=== PATIENT | female | born 1955 | race Caucasian/White ===

== ENCOUNTER 2018-06-02 15:06 | Emergency (ER) | payer BC ==
[2018-06-02] MEDS ORDERED: MULTI-DAY VITAM1 TAB PO (19:38)
[2018-06-02] MEDS ORDERED: BAYER CHEWABLE81 MG PO (19:39)
[2018-06-02] MEDS ORDERED: FISH OIL 1,0001 CA1 PO (19:40)
[2018-06-02] MEDS ORDERED: ZYRTEC10 MG PO (19:40)
[2018-06-02] MEDS ORDERED: COLACE100 MG PO (19:40)
[2018-06-02] MEDS ORDERED: CITRACAL + D E1 EACH PO (19:41)
[2018-06-02] MEDS ORDERED: NIASPAN500 MG PO (19:42)
[2018-06-02] MEDS ORDERED: OMEPRAZOLE20 M1 PO (19:42)
[2018-06-02] MEDS ORDERED: ESTRACE2 MG PO (19:43)
[2018-06-02] MEDS ORDERED: SYNTHROID50 MCG PO (19:45)
[2018-06-02] MEDS ORDERED: HYDROCHLOROTHIA25 MG PO (19:46)
[2018-06-02] MEDS ORDERED: PROCARDIA10 MG PO (19:49)
[2018-06-02] MEDS ORDERED: MERIBIN5 MG PO (19:54)
[2018-06-02] MEDS ORDERED: GABAPENTIN100 MG PO ×3 (19:55→20:02)
[2018-06-03 15:17] VITALS: BMI 27.8
[2018-06-03] MEDS ORDERED: HYDROCODON-ACE1 EAC7 PO (16:02)
[2018-06-03] MEDS ORDERED: LEVOFLOXACIN500 MG PO (17:33)
== END 2018-06-02 16:42 | disposition left against medical advice (07) ==
LOC: D.ER 15:06
DX: R10.9 Unspecified abdominal pain (principal)

== ENCOUNTER 2018-06-02 17:09 | Inpatient (IN) | payer BC ==
[~2018-06-02] VITALS: Ht 162.6 cm; Wt 73.5 kg
--- NOTE | 2018-06-02 18:25 | NUR ---
PT ARRIVED TO UNIT TO ROOM 1213 VIA WHEELCHAIR VIA HOSPITAL STAFF IN STABLE CONDITION, ORIENTATED TO ROOM CL IN REACH, FAMILY AT BEDSIDE
[2018-06-02 18:30] VITALS: BP 117/61
[2018-06-02] MEDS ORDERED: MULTI-DAY VITAM1 TAB PO (19:38)
[2018-06-02] MEDS ORDERED: BAYER CHEWABLE81 MG PO (19:39)
[2018-06-02] MEDS ORDERED: FISH OIL 1,0001 CA1 PO (19:40)
[2018-06-02] MEDS ORDERED: COLACE100 MG PO (19:40)
[2018-06-02] MEDS ORDERED: ZYRTEC10 MG PO (19:40)
[2018-06-02] MEDS ORDERED: CITRACAL + D E1 EACH PO (19:41)
[2018-06-02] MEDS ORDERED: OMEPRAZOLE20 M1 PO (19:42)
[2018-06-02] MEDS ORDERED: NIASPAN500 MG PO (19:42)
[2018-06-02] MEDS ORDERED: ESTRACE2 MG PO (19:43)
[2018-06-02] MEDS ORDERED: SYNTHROID50 MCG PO (19:45)
[2018-06-02] MEDS ORDERED: HYDROCHLOROTHIA25 MG PO (19:46)
[2018-06-02] MEDS ORDERED: PROCARDIA10 MG PO (19:49)
[2018-06-02] MEDS ORDERED: MERIBIN5 MG PO (19:54)
[2018-06-02] MEDS ORDERED: GABAPENTIN100 MG PO ×3 (19:55→20:02)
[2018-06-02 20:00] VITALS: BP 108/58
[2018-06-02 20:42] LABS: BASOPHILS 0 % (0-2); EOSINOPHILS 0 % (0-7); HEMATOCRIT 37.6 % (36.0-48.0); HEMOGLOBIN 13.1 g/dL (12-16); IMMATURE GRANULOCYTES 0.3 % (0-5); LYMPHOCYTES 11.5 % (15-50); MCH 31.9 pg (26.0-34.0); MCHC 34.8 g/dL (31.0-37.0); MCV 91.5 fL (80.0-100.0); MONOCYTES 3.4 % (2-11); NEUTROPHILS 84.8 % (40-80); PLATELET COUNT 161 10x3/uL (130-400); RBC 4.11 10x6/uL (4.00-5.40); RDW 14.3 % (11.5-14.5)
[2018-06-02 21:03] LABS: ALBUMIN 2.7 g/dL (3.4-5.0); ANION GAP 12.2 mmol/L (8-16); BILIRUBIN - TOTAL 0.55 mg/dL (0.2-1.3); CALCIUM 8.6 mg/dL (8.5-10.1); CARBON DIOXIDE 31.6 mmol/L (21.0-32.0); CREATININE - SERUM 1.1 mg/dL (0.6-1.3); PROTEIN - SERUM 8.4 g/dL (6.4-8.2)
[2018-06-02 21:05] LABS: POTASSIUM - SERUM 2.8 mmol/L (3.5-5.1)
--- NOTE | 2018-06-02 21:23 | NUR ---
CRITICAL POTASSIUM OF 2.[address] OLIVAREZ.
[2018-06-02 21:43] VITALS: BP 108/58; BMI 27.8
[2018-06-03] VITALS: BP 108/62
--- NOTE | 2018-06-03 02:12 | NUR ---
IV LINE ESTABLISHED. RADIOLOGY TO REDELIVED ORAL CONTRAST FOR IMAGING. THE PATIENT APPEARS COMFORTABLE WITH NO QUESTIONS OR CONCERNS AT THIS TIME.
[2018-06-03 02:15] LABS: APPEARANCE CLEAR (CLEAR); BILIRUBIN NEGATIVE (NEGATIVE); COLOR YELLOW (YELLOW); GLUCOSE NEGATIVE (NEGATIVE); KETONE SMALL mg/dL (NEGATIVE); NITRITE NEGATIVE (NEGATIVE); PROTEIN TRACE mg/dL (NEGATIVE); UROBILINOGEN NORMAL (NORMAL)
[2018-06-03 02:24] LABS: BACTERIA MODERATE /hpf (NONE SEEN); EPITHELIAL CELLS 0-5 /hpf (0-5); RED CELLS - URINE OCC /hpf (0-5); WHITE CELLS - URINE 0-5 /hpf (0-5)
[2018-06-03 04:30] VITALS: BP 118/66
[2018-06-03 05:38] LABS: BASOPHILS 0 % (0-2); EOSINOPHILS 0 % (0-7); HEMATOCRIT 36.4 % (36.0-48.0); HEMOGLOBIN 12.5 g/dL (12-16); IMMATURE GRANULOCYTES 0.3 % (0-5); LYMPHOCYTES 9.6 % (15-50); MCH 31.3 pg (26.0-34.0); MCHC 34.3 g/dL (31.0-37.0); MCV 91.2 fL (80.0-100.0); MEAN PLATELET VOLUME 10.6 fL (7.4-10.4); MONOCYTES 4.3 % (2-11); NEUTROPHILS 85.8 % (40-80); PLATELET COUNT 169 10x3/uL (130-400); RBC 3.99 10x6/uL (4.00-5.40); WBC 11.8 10x3/uL (4.8-10.8)
[2018-06-03 06:14] LABS: ALBUMIN 2.5 g/dL (3.4-5.0); ANION GAP 13.4 mmol/L (8-16); BILIRUBIN - TOTAL 0.58 mg/dL (0.2-1.3); CALCIUM 8.5 mg/dL (8.5-10.1); CARBON DIOXIDE 28.1 mmol/L (21.0-32.0); CREATININE - SERUM 0.9 mg/dL (0.6-1.3); PROTEIN - SERUM 7.9 g/dL (6.4-8.2)
[2018-06-03 06:16] LABS: POTASSIUM - SERUM 2.5 mmol/L (3.5-5.1)
[2018-06-03 09:25] VITALS: BP 105/63
--- NOTE | 2018-06-03 09:50 | NUR ---
PATIENT C/O FREQUENT EXPLOSIVE DIARRHEA Q 30 MINUTES. BECOMING LESS VOLUME BUT STILL FREQUENT. HAS BEEN NPO EXCEPT ICE CHIPS X 24 HOURS.
[2018-06-03 13:44] VITALS: BP 124/69
[2018-06-03 15:17] VITALS: Ht 162.6 cm; Wt 73.5 kg
--- NOTE | 2018-06-03 15:53 | NUR ---
AGREE WITH LPNS ASSESSMENT. PT TO OR AT THIS TIME. NAD NOTED.
[2018-06-03] MEDS ORDERED: HYDROCODON-ACE1 EAC7 PO (16:02)
[2018-06-03] MEDS ORDERED: LEVOFLOXACIN500 MG PO (17:33)
[2018-06-03 18:30] VITALS: BP 113/65
[2018-06-03 19:00] VITALS: BP 120/66
--- NOTE | 2018-06-03 19:46 | NUR ---
PT LYING IN BED. SON IN ROOM. CALL LIGHT IN REACH. PT DENIES NEEDS OR PAIN AT THIS TIME. PT IS GETTING VITALS Q30 MIN AT THIS TIME THEN ONE HOUR. VITALS WNL. WILL CONTINUE TO MONITOR. A/O X4. RESP EVEN AND UNLABORED AT THIS TIME.
[2018-06-04 00:34] VITALS: BP 113/70
--- NOTE | 2018-06-04 00:54 | NUR ---
PT POTASSIUM RESULTS SHOWED IT WAS 3.2. GAVE 40MEQ PER ELECTROLYTE PROTOCOL. PT WAS GIVEN 3 RIDERS THROUGHOUT THE DAY ON 06/03/18. LAB WILL REDRAW AT 0500. PT LYING IN BED. CALL LIGHT IN REACH. DENIES NEEDS AT THIS TIME.
[2018-06-04 04:38] VITALS: BP 117/68
[2018-06-04 05:25] LABS: BASOPHILS 0 % (0-2); EOSINOPHILS 0 % (0-7); HEMOGLOBIN 12.3 g/dL (12-16); IMMATURE GRANULOCYTES 0.2 % (0-5); LYMPHOCYTES 3.8 % (15-50); MCH 31.2 pg (26.0-34.0); MCHC 34.2 g/dL (31.0-37.0); MCV 91.4 fL (80.0-100.0); MEAN PLATELET VOLUME 10.5 fL (7.4-10.4); MONOCYTES 2.5 % (2-11); NEUTROPHILS 93.5 % (40-80); PLATELET COUNT 164 10x3/uL (130-400); RBC 3.94 10x6/uL (4.00-5.40); RDW 14.2 % (11.5-14.5)
[2018-06-04 05:37] LABS: ANION GAP 13.7 mmol/L (8-16); CALCIUM 8.2 mg/dL (8.5-10.1); CARBON DIOXIDE 26.8 mmol/L (21.0-32.0); CREATININE - SERUM 1.1 mg/dL (0.6-1.3); POTASSIUM - SERUM 3.5 mmol/L (3.5-5.1)
--- NOTE | 2018-06-04 06:26 | NUR ---
PT LYING IN BED. CALL LIGHT IN REACH. PT DENIES NEEDS AT THIS TIME. TM
--- NOTE | 2018-06-04 07:30 | NUR ---
RESTING QUIETLY IN BED. DENIES ANY NEEDS AT THIS TIME.
--- NOTE | 2018-06-04 08:00 | NUR ---
ASSESSMENT COMPLETE. IV TO L FA PATENT. ABDOMINAL INCISIONS WITH STERI STRIPS INTACT. TOLERATING REGULAR DIET WITHOUT DIFFICULTY. REPORTS PASSING GAS. ENCOURAGED TO AMBULATE IN HALLWAY. AT BEDSIDE. DENIES ANY NEEDS AT THIS TIME.
[2018-06-04 08:21] VITALS: BP 112/52
[2018-06-04 12:24] VITALS: BP 111/36
--- NOTE | 2018-06-04 13:05 | NUR ---
DISCHARGE TEACHING GIVEN TO PATIENT AND . VOICED UNDERSTANDING. SCRIPT FOR NORCO GIVEN TO PATIENT.
--- NOTE | 2018-06-04 13:15 | NUR ---
DC'D HOME WITH . ESCORTED TO VEHICLE BY VOLUNTEER VIA WC WITH BELONGINGS.
== END 2018-06-04 13:15 | disposition home or self-care (01) | DRG 342 ==
LOC: D.M3 17:09
PROVIDERS: Surgery; ADMIT Family Medicine; ATTEND Family Medicine
PROC: 0W9G4ZZ Drainage of Peritoneal Cavity, Percutaneous Endoscopic Approach (ICD-10-PCS; 2018-06-03)
PROC: 0DTJ4ZZ Resection of Appendix, Percutaneous Endoscopic Approach (ICD-10-PCS; principal; 2018-06-03 17:45)
DX: K35.30 Acute appendicitis with localized peritonitis, without perforation or gangrene (principal); K57.92 Diverticulitis of intestine, part unspecified, without perforation or abscess without bleeding; E87.6 Hypokalemia